=== PATIENT | female | born 1950 | race Caucasian/White ===

== ENCOUNTER 2017-06-22 07:06 | Day surgery (SDC) | payer OTHER ==
[~2017-06-22] VITALS: Ht 162.6 cm; Wt 87.0 kg
[~2017-06-22 07:06] MED LIST: ALDACTONE25 MG PO; ASCORBIC ACID500 M3 PO; LASIX40 MG PO; LO-DOSE ASPIRIN81 M2 PO; PLAVIX75 MG PO; TYLENOL WITH C1 EACH PO; VALIUM2 MG PO; VENTOLIN HFA18 GM IH; VITAMIN B-121000 MC1 SL; VITAMIN E400 UNIT PO; [UNRECOGNIZED DRUG - OTHER] PO
[2017-06-22] MEDS ORDERED: TRIAMCINOLONE A15 GM TP (07:37)
[2017-06-22 07:51] VITALS: BP 130/73
[2017-06-22 10:55] VITALS: BP 126/79
[2017-06-22 11:31] VITALS: BP 123/64
== END 2017-06-22 11:40 | disposition home or self-care (01) ==
LOC: SDC 07:06
DX: H35.341 Macular cyst, hole, or pseudohole, right eye (principal); I10 Essential (primary) hypertension; J45.909 Unspecified asthma, uncomplicated; K21.9 Gastro-esophageal reflux disease without esophagitis; Z87.891 Personal history of nicotine dependence; Z79.02 Long term (current) use of antithrombotics/antiplatelets; Z79.82 Long term (current) use of aspirin; Z88.0 Allergy status to penicillin; Z88.2 Allergy status to sulfonamides
CPT/HCPCS: J0690; J2405; J3010; J3300